=== PATIENT | female | born 1965 | race Caucasian/White ===

== ENCOUNTER 2025-09-28 23:18 | Emergency (ER) | payer BC, SELFPAY ==
[2025-09-28 23:19] VITALS: BP 126/80
[2025-09-28 23:56] VITALS: BP 108/69
[2025-09-29] VITALS: BP 111/74
[2025-09-29 00:30] LABS: Hematocrit 38.8 % (37.0-47.0); Hemoglobin 13.3 g/dL (12.0-16.0); Mean Corp Hgb Conc. 34.3 g/dL (33.0-37.0); Mean Corpuscular Volume 87.4 fL (81.0-99.0); Nucleated Red Blood Cells % 0 %; Platelet Count 291 10^3/uL (130-400); Red Cell Dist. Width 13.1 % (11.5-14.5)
--- NOTE | 2025-09-29 00:46 | ED.GENMED ---
History of Present Illness
General
Chief Complaint: Extremity Pain (non-traumatic)
Source: patient
Exam Limitations: none
Time Seen by Provider: 09/29/25 00:16
Nursing documentation reviewed up to this point in time: agreed with
History of Present Illness
History of Present Illness:
The patient is a 60-year-old female who presented with a sudden onset of left sided jaw pain on around 12 PM. She described the pain as severe, resembling temporomandibular joint dysfunction, although no chewing or eating activity preceded
the onset. As the day progressed, the patient experienced numbness in the left facial/cheek region gabe to dental anesthesia, with continued pain left facial/jaw region, worse with chewing on the affected side. Additionally, the patient reported
tingling in her left arm, which she attributed to a pinched nerve previously diagnosed in the past.
By Monday, the initial jaw pain and numbness had resolved, but she was left with profound fatigue, stating she could not complete her work tasks due to an overwhelming lack of energy. She denied any chest pain, cough, dyspnea, fever, nasal
congestion, or neck pain at that time. However, she now notes some upper back and lower left posterior neck pain since yesterday. She has history of 'pinched nerve' in her neck with prior history of LUE tingling and underwent EMG/NCS several years
ago showing pinched nerve in neck. She was prescribed a TENS unit at that time. She has been using the TENS unit last night and again today.
Her daily medications include: Alprazolam, Adderall, HRT
Past History
Past History
ED Past Medical History: Psychiatric (ADHD, anxiety)
ED Past Surgical History:
Social History
Tobacco: Non-smoker
Alcohol: None
Living: with family
Employment: Employed
Family History
Family History: Other (Mother with history of stroke)
Phy Exam
Physical Exam
Physical Exam:
GENERAL: 60-year-old woman appears her stated age, bright and alert, pleasant, easily communicative, appears in no acute distress. Accompanied by 2 of her children.
EYE: pupils equal. anicteric
NECK: Supple, no midline bony tenderness, mild left lower paracervical muscle tenderness to palpation. Full cervical range of motion with mildly increased pain with left rotation, flexion and extension, no meningismus, no significant adenopathy.
ENT: posterior pharynx is clear, oral mucosa is moist. TM clear b/l, nares patent. No palpable facial nor dental tenderness. No soft tissue swelling.
CARDIAC: Regular rate and rhythm. no murmur. No rub. No chest wall tenderness.
LUNGS: Clear breath sounds bilaterally, no acute respiratory distress, no wheezes/rales/rhonchi
ABDOMEN: Soft, nondistended, without focal tenderness, no r/g, no cvat. normoactive BS.
NEUROLOGICAL: Alert and oriented x3, no focal neuro deficits. Gait is trujillo and steady.
SKIN: Warm and dry, normal color, skin intact. No rash.
MUSCULOSKELETAL: No C/C/E. peripheral pulses are full and equal b/l. No palpable tenderness.
PSYCH: Normal and appropriate interaction.
Course
Orders/Labs/Results
Orders:
Orders
09/28/25 23:23
ECG [Electrocardiogram (*1)] Urgent
Reason for Study: Other
Other Reason for Exam: LEFT ARM PAIN
EKG- Treatment ONCE
09/28/25 23:35
Complete Blood Count/With Diff Urgent
Comprehensive Metabolic Panel Urgent
Troponin I Urgent
Abnormal Lab Results
09/29/25
00:13
WBC 13.2 H 10^3/uL
(4.8-10.8)
Abs Immat Gran (auto) 0.1 H 10^3/uL
(0-0.05)
Absolute Neuts (auto) 7.5 H 10^3/uL
(1.4-6.5)
Absolute Lymphs (auto) 4.2 H 10^3/uL
(1.2-3.4)
Absolute Monos (auto) 0.9 H 10^3/uL
(0.1-0.6)
BUN 21 H mg/dl
(7-17)
09/29/25 00:13
09/29/25 00:13
Vital Signs
Initial and Last Documented VS:
Initial Vital Signs
Temp Pulse Resp BP Pulse Ox
98 F 88 20 126/80 98
09/28/25 23:19 09/28/25 23:19 09/28/25 23:19 09/28/25 23:19 09/28/25 23:19
Last Documented Vital Signs
Temp Pulse Resp BP Pulse Ox
98 F 79 14 111/74 96
09/28/25 23:19 09/29/25 00:45 09/29/25 00:45 09/29/25 00:00 09/29/25 00:47
MDM/Problems Addressed
Differential Diagnosis Includes:
The Differential Diagnosis includes, in no particular order and is not limited to:
- Temporomandibular joint disorder
- Trigeminal neuralgia
- Cervical radiculopathy
- ACS
- GERD
- Transient ischemic attack-doubtful especially with accompanying pain.
- Hemifacial spasm
- Cuddy palsy
- Sinusitis
- Migraine
- Neuralgia
- Myofascial pain syndrome
MDM/Problems Addressed:
Acute:
- Jaw pain and facial numbness of sudden onset
- Severe fatigue
- Neck pain
- Left arm paresthesia
Chronic:
- Pinched nerve with past episodes of left arm tingling
History and exam most consistent with musculoskeletal etiology, cervical radiculopathy in nature.
Must also consider ACS, GERD.
Patient is chronically maintained on HRT however has had no chest pain, no shortness of breath nor palpitations, no leg pain or swelling, nothing to suggest thromboembolism.
EKG is within normal limits.
Awaiting laboratory studies including troponin.
At this point no indication for imaging.
Chronic conditions affecting care: Neurological disorder (History of cervical DJD with prior episode of paresthesia left arm.) and Psychiatric illness (ADHD, anxiety)
*Pulse Oximetry
SaO2: 96
Oxygen Mode of Delivery: Room air
Patient hypoxic: no
*EKG
Interpreted by ED Provider?: Yes
Interpretation: normal
Comparison EKG: no comparison EKG present
Rate: normal
Rhythm: sinus
Haynes: normal axis
Interval: normal interval
QRS Pattern: normal QRS
Ischemia: no ischemia
*Chemistry Manager Interpretation
Rate: normal
Interpretation: normal
Rhythm: sinus
*Critical Care Note
Total Time (30-74mins, 75-104mins- exclusive of procedures): Not Applicable
Update Note
Update Note:
01:30
Labs are overall unremarkable. Mildly elevated white blood cell count of 13. Patient remains afebrile, no recent fever nor URI symptoms.
Nothing in history nor exam to suggest infectious process.
No old labs to compare.
Chemistries are unremarkable and troponin is negative.
With ongoing symptoms for several days, unremarkable EKG, normal troponin. ACS is doubtful.
Will discharge to home with recommendations to continue her TENS unit along with prompt follow-up with PCP for recheck.
ED Attending Note
-
Portions of this chart may have been created with voice recognition software.� Occasional wrong word or��sound alike� substitutions may have occurred due to the inherent limitations of voice recognition software.
Discharge Plan
Departure
Patient Disposition: Home (Routine Discharge)
Date of Disposition: 09/29/25
Time of Disposition: 01:26
Patient with high blood pressure during this ER visit?: No
Condition: Good
Discharge Problem:
Arm paresthesia, left, Cervical disc disease
Instructions: Muscle and Bone Pain (DC), Radiculopathy of the neck and back (including sciatica)
Referrals:
Farhana Dos Santos MD [Family Provider, General] - Call in 1-3 days for appt
Interventions
Interventions:
*Risk Screen - Suicide Last Done: 09/28/25 23:19
*General Assessment Last Done: 09/29/25 00:41
*Neglect/Abuse Screening Last Done: 09/28/25 23:19
*ED- Fall Risk Assessment Last Done: 09/29/25 00:41
*ED COVID-19 Vaccine History Last Done: 09/29/25 00:41
*ED Influenza Vaccine History Last Done: 09/29/25 00:41
ED-Skin Assessment Last Done: 09/29/25 00:42
ED-Peripheral Vascular Assessment Last Done: 09/29/25 00:42
ED- Pulmonary Assessment Last Done: 09/29/25 00:42
ED-Musculoskeletal Assessment Last Done: 09/29/25 00:42
ED- Cardiac Assessment Last Done: 09/29/25 00:42
Discharge Date and Time
Print Language: FRISIAN
[2025-09-29 00:47] LABS: ALT (SGPT) 28 U/L (0-35); AST (SGOT) 22 U/L (14-36); Albumin 4.0 g/dl (3.5-5.0); Alkaline Phosphatase 82 U/L (38-126); Blood Urea Nitrogen 21 mg/dl (7-17); Calcium 9.5 mg/dl (8.4-10.2); Carbon Dioxide 24 mmol/L (22-30); Chloride 107 mmol/L (98-107); Glucose 95 mg/dl (70-99); Potassium 4.0 mmol/L (3.5-5.1); Sodium 135 mmol/L (135-145); Total Protein 6.8 g/dl (6.3-8.2); eGFR > 60.00
[2025-09-29 00:58] LABS: Troponin I 0.015 ng/ml
== END 2025-09-29 01:58 | disposition home or self-care (01) ==
LOC: EMR 23:18
PROVIDERS: EMERGENCY PHYSICIAN Emergency Medicine; FAMILY PHYSICIAN Internal Medicine
DX: M50.90 Cervical disc disorder, unspecified, unspecified cervical region (principal); R20.2 Paresthesia of skin; Z79.899 Other long term (current) drug therapy
CPT/HCPCS: 99284; 80053; 84484; 85025; 93005